=== PATIENT | male | born 1965 | race Two or more races ===

== ENCOUNTER → 2022-09-25 | Outpatient (CLI) | payer OTHER ==
[2022-09-25 11:02] VITALS: BP 130/83; PULSE 70; RESP 18; TEMP 98
--- NOTE | 2022-09-25 15:28 | P.PAINPG ---
PQRS Measure Charge Sheet Comment: HISTORY OF PRESENT ILLNESS: 57 yr old male as a referral from Dr Nunez presents today w severe and chronic L hip pain secondary to OA for evaluation. Pt states pain level is provoked at 8 /10 in intensity, constant, localized in the L hip, achy in character w/o shooting pain. Pain is provoked by weight bearing activity. Pain is alleviated by medications (Advil, Tylenol), topicals, injections at OA, PT 6 weeks which ended in July 2022, repositioning and rest. PMH: OA, Asthma PSH: LLE Surgery (1988) SH: No Tobacco use, Occasional ETOH use, No illicit drug use FH: Non contributory All: NKDA Meds: See list REVIEW OF ORGAN SYSTEMS: CONSTITUTIONAL: No fevers or chills. No recent weight loss. NEUROLOGICAL: + numbness and tingling along the distal extremities. No seizure disorders or headaches. MUSCULOSKELETAL: + pain PSYCHIATRIC: Denies current depression or suicidal thoughts. Physical Examinations : Constitutional : Cooperative , not in acute distress . Neurologic : Cranial nerve II to XII intact. No focal neurological deficits. Psychiatric : alert & oriented x 3. Matching mood & appropriate affect. Judgment & insight intact. Musculoskeletal : Cervical Spine Motor strength in the deltoid and biceps: Normal right side. Normal Left side Motor strength biceps and the wrist extensors: Normal right side . Normal left side Motor strength in the triceps muscle: Normal right side. Normal left side Deep tendon reflexes: Normal at the biceps. Normal at Brachioradialis. Normal at triceps Vertebral body tenderness to deep palpation over Cervical facet loading test: positive bilaterally Spurling test: positive bilaterally Neck distraction test: positive bilaterally Smitha sign: positive bilaterally Lumbar spine L hip TTP over anterior femoralacetabular joint Motor strength lower extremities ,thigh and legs 5/5 Right side , 5/5 Left side Deep tendon reflexes : Normal Knee Jerk. Normal Ankle Jerk Vertebral body tenderness over Lumbar facet Loading Test: positive Right / positive Left Range of motion of the lumbar spine Flexion 30 degrees, extension 10 degrees Straight Leg Raise test: Left/ Right positive at degree Mikal test: positive right / positive left. Severe tenderness over the Sacroiliac joint on the Right / Left sides Gaenslen test: positive bilaterally Seated flexion test: positive bilaterally. Sacral spine : Severe tenderness over the Sacroiliac joint: right side / left side Range of motion: Flexion of the lumbar spine <60 degrees Range of motion: Extension of the lumbar spine <20 degrees Gaenslen's Test positive Abraham's Test positive Mikal test: positive right side / left side Thigh Thrust Test Sacral Thrust Test Imaging: Left hip x-ray from 02/15/22 reviewed Assessment/ Plan : L hip OA Recommendation of L hip MRI re: M51.36. May return to clinic within 2-4 wks for a re evaluation. All questions answered. I have spent greater than 30 minutes on patient care today. Dr Veronica was available by phone for the evaluation of this patient. The time was used to review the medical records including relevant urine studies and Prescription history (MAPs), review of the available imaging, evaluation and examination of the patient, coordination of care with the medical staff and if applicable referring physicians, as well as creation of the medical record Controlled Substance Measures - Controlled Substance Measures Is patient prescribed a controlled substance at discharge?: No
== END ==
LOC: PNWHC3 08:41
PROVIDERS: ATTEND Specialist
DX: M16.12 Unilateral primary osteoarthritis, left hip (principal); M19.90 Unspecified osteoarthritis, unspecified site; J45.909 Unspecified asthma, uncomplicated; G89.29 Other chronic pain; M25.511 Pain in right shoulder
CPT/HCPCS: 99202